=== PATIENT | female | born 1970 | race Two or more races ===

== ENCOUNTER 2023-10-19 13:29 | Emergency (ER) | payer SELFPAY ==
[~2023-10-19] VITALS: Ht 172.7 cm; Wt 79.5 kg
[2023-10-19 14:41] LABS: Basophils # (auto) 0 10 ^3/uL (0-0.2); Basophils % (auto) 0.7 % (0.0-2.0); Eosinophils # (auto) 0.1 10 ^3/uL (0-0.8); Eosinophils % (auto) 1.1 % (0.0-7.0); Hemoglobin 16.2 g/dL (12.2-16.2); Lymphocytes # (auto) 1.1 10 ^3/uL (0.4-5.4); Lymphocytes % (auto) 14.9 % (10.0-50.0); Mean Corpuscular Hemoglobin 32.6 pg (28.0-32.0); Mean Corpuscular Hgb Conc. 34.5 g/dL (32.0-36.0); Mean Corpuscular Volume 94.6 fL (80.0-100.0); Monocytes # (auto) 0.4 10 ^3/uL (0-1.3); Monocytes % (auto) 5.6 % (0.0-12.0); Neutrophils # (auto) 5.6 10 ^3/uL (1.6-8.6); Neutrophils % (auto) 77.7 % (37.0-80.0); Nucleated Red Blood Cells % 0.1 %; Platelet Count (auto) 361 10^3/uL (140-450); Red Blood Cells 4.97 10^6/uL (4.0-5.20); Red Cell Distribution Width 13.7 % (11.8-14.3); White Blood Cell 7.2 10^3/uL (4.4-10.8)
[2023-10-19 14:43] VITALS: PULSE 74; RESP 16; O2SAT 98
[2023-10-19 14:52] LABS: Chloride 110 mmol/L (98-107); Potassium 3.9 mmol/L (3.5-5.1); Sodium 138 mmol/L (136-145)
[2023-10-19 14:53] LABS: Anion Gap 2 (5-15); Carbon Dioxide 26 mmol/L (20-30)
[2023-10-19 14:54] LABS: Calcium 9.4 mg/dL (8.7-10.4)
[2023-10-19 14:58] LABS: BUN/Creatinine Ratio 9.1 (10.0-20.0); Blood Urea Nitrogen 8 mg/dL (9-23); Glucose 118 mg/dL (74-106)
[2023-10-19 14:59] LABS: Blood Alcohol < 3.0 mg/dL (<10)
[2023-10-19] MEDS: ONDANSETRON HCL 4 MG/2 ML VIAL IV ONE (15:00)
[2023-10-19] MEDS: SODIUM CHLORIDE 0.9% 1,000 ML IV ONE (15:00)
[2023-10-19] MEDS: MORPHINE SULFATE 4 MG/ML SYR/VIAL IV ONE (15:01)
[2023-10-19] MEDS: HYDROcodone-ACET 10/325MG TAB PO ONE (17:09)
[2023-10-19] MEDS: traMADol HCL 50 MG TAB PO ONE (17:14)
[2023-10-19 17:29] VITALS: BP 124/68; PULSE 69; RESP 18; TEMP 98; O2SAT 98
== END 2023-10-19 17:47 | disposition home or self-care (01) ==
LOC: EDBD 13:29 → ER 13:29
DX: S82.001A Unspecified fracture of right patella, initial encounter for closed fracture (principal); S70.01XA Contusion of right hip, initial encounter; S00.81XA Abrasion of other part of head, initial encounter; F17.210 Nicotine dependence, cigarettes, uncomplicated; Z88.0 Allergy status to penicillin; Z88.1 Allergy status to other antibiotic agents; Z90.710 Acquired absence of both cervix and uterus; W18.09XA Striking against other object with subsequent fall, initial encounter; Y93.89 Activity, other specified; Y92.89 Other specified places as the place of occurrence of the external cause; Y99.8 Other external cause status
CPT/HCPCS: 29505; 36415; 70450; 72125; 73502; 73564; 80048; 80320; 85025; 96361; 96374; 96375; 99285; J2270; J2405; J7030